=== PATIENT | female | born 1995 | race Caucasian/White ===

== ENCOUNTER 2017-06-25 21:29 | Emergency (ER) | END 2017-06-26 02:44 | disposition home or self-care (01) ==

== ENCOUNTER 2017-12-22 12:39 | Outpatient (CLI) | END 2017-12-22 14:26 | disposition home or self-care (01) ==

== ENCOUNTER 2017-12-24 12:26 | Inpatient (IN) | END 2017-12-26 19:23 | disposition home or self-care (01) | DRG 775 ==